=== PATIENT | male | born 1965 | race Hispanic/Latino ===

== ENCOUNTER 2021-05-31 21:23 | Emergency (ER) | payer OTHER ==
[~2021-05-31] VITALS: Ht 175.3 cm; Wt 99.8 kg
[2021-05-31 23:19] VITALS: BP 139/87
[2021-05-31] MEDS ORDERED: ASPIRIN 81MG CHEW TAB PO ONE (23:30)
== END 2021-06-01 01:24 | disposition left against medical advice (07) ==
LOC: EDH 21:44
DX: R07.89 Other chest pain (principal); Z53.21 Procedure and treatment not carried out due to patient leaving prior to being seen by health care provider
CPT/HCPCS: 93005